=== PATIENT | male | born 1965 | race Hispanic/Latino ===

== ENCOUNTER 2020-11-16 13:17 | Inpatient (IN) | payer BC, MEDICARE ==
[~2020-11-16] VITALS: Ht 167.6 cm; Wt 83.6 kg
[2020-11-16] MEDS ORDERED: PIPERACILLIN/TAZOBACTAM 2.25 GM in SODIUM CHLORIDE 0.9% 50ML 50 ML IV SCH (15:00)
[2020-11-16] MEDS ORDERED: VANCOMYCIN 1GM/NS 250 ML 250 ML IV ONE (15:30)
[2020-11-16 16:15] LABS: BASOPHILS # (AUTO) 0.1 (0.0-0.1); BASOPHILS % 0.3 % (0.0-1.0); EOSINOPHILS # (AUTO) 0.1 (0.0-0.4); EOSINOPHILS % 0.5 % (0.0-6.0); HEMATOCRIT 30.5 % (38.2-49.6); HEMOGLOBIN 10.2 g/dL (14.0-18.0); LYMPHOCYTES # (AUTO) 1.2 (1.0-3.2); LYMPHOCYTES % 4.4 % (18.0-39.1); MEAN CORPUSCULAR HEMOGLOBIN 31.2 pg (28-32); MEAN CORPUSCULAR HGB CONC 33.4 g/dL (31-35); MEAN CORPUSCULAR VOLUME 93.3 fL (81-99); MONOCYTES # (AUTO) 1.4 (0.2-0.8); NEUTROPHILS # (AUTO) 24.6 (2.1-6.9); NEUTROPHILS % 88.5 % (38.7-80.0); PLATELET COUNT 246 x10e3/uL (140-360); RED BLOOD COUNT 3.27 x10e6/uL (4.3-5.7)
[2020-11-16 16:34] LABS: INR 1.37; PROTHROMBIN TIME 17.5 seconds (11.9-14.5)
[2020-11-16 16:35] LABS: PARTIAL THROMBOPLASTIN TIME 64.3 seconds (23.8-35.5)
[2020-11-16 16:36] LABS: ALBUMIN 1.7 g/dL (3.5-5.0); ALBUMIN/GLOBULIN RATIO 0.4 (0.8-2.0); ALKALINE PHOSPHATASE 252 IU/L (40-150); ANION GAP 21.2 mmol/L (8-16); BLOOD UREA NITROGEN 73 mg/dL (7-26); BUN/CREATININE RATIO 7 (6-25); CARBON DIOXIDE 19 mmol/L (22-29); CHLORIDE 98 mmol/L (98-107); CREATINE KINASE 111 IU/L (30-200); CREATININE, SERUM 9.86 mg/dL (0.72-1.25); EST GLOMERULAR FILTRATION RATE 6 ML/MIN (60-); GLUCOSE 314 mg/dL (74-118); MAGNESIUM 2.1 MG/DL (1.3-2.1); POTASSIUM 3.2 mmol/L (3.5-5.1); SODIUM 135 mmol/L (136-145)
[2020-11-16 16:40] LABS: ALANINE AMINOTRANSFERASE < 6 IU/L (0-55)
[2020-11-16 16:41] LABS: CALCIUM 6.9 mg/dL (8.4-10.2)
[2020-11-16] MEDS ORDERED: DEXTROSE 50% SYRINGE 50 ML IV PRN (16:45)
[2020-11-16] MEDS ORDERED: ONDANSETRON HCL INJ 2MG/ML 2ML 2 MG/ML VIAL IV PRN (16:45)
[2020-11-16 18:04] LABS: BAND NEUTROPHILS % (MANUAL) 4 %; LYMPHOCYTES % (MANUAL) 5 % (19-48); MONOCYTES % (MANUAL) 4 % (3.4-9.0); NEUTROPHILS % (MANUAL) 87 % (40-74)
[2020-11-16 18:05] LABS: PLATELET ESTIMATE ADEQUATE; PLATELET MORPHOLOGY COMMENT NORMAL
[2020-11-16 18:06] LABS: POLYCHROMASIA FEW
[2020-11-16] MEDS ORDERED: CEFTRIAXONE SOD 1 GM/50 ML BAG IV SCH (18:15)
[2020-11-16] MEDS ORDERED: TRAMADOL HCL 50 MG TAB PO PRN (18:15)
[2020-11-16] MEDS ORDERED: HYDRALAZINE HCL 20 MG/ML VIAL IV PRN (18:15)
[2020-11-16] MEDS: CEFTRIAXONE SOD 1 GM in SODIUM CHLORIDE 0.9% 50ML 50 ML IV SCH (18:54)
[2020-11-16 20:00] VITALS: BP 164/80
[2020-11-16 20:23] VITALS: BP 164/80
[2020-11-16] MEDS: MELATONIN 5 MG TABLET PO SCH (21:33)
[2020-11-16] MEDS: INSULIN LISPRO 100 UNIT/1 ML 3ML VIAL SQ SCH (21:44)
[2020-11-16 22:04] VITALS: BP 164/80
[2020-11-16] MEDS ORDERED: FUROSEMIDE40 MG PO (22:25)
[2020-11-16] MEDS ORDERED: GABAPENTIN100 MG PO (22:26)
[2020-11-16] MEDS ORDERED: AMLODIPINE BESYL5 MG PO (22:26)
[2020-11-16] MEDS ORDERED: METOPROLOL TAR100 MG PO (22:26)
[2020-11-16] MEDS ORDERED: LEVEMIR FL100 UNIT/1 SC (22:27)
[2020-11-16] MEDS ORDERED: ELIQUIS2.5 MG PO (22:27)
[2020-11-16] MEDS ORDERED: RENVELA0.8 GM PO (22:28)
[2020-11-17] VITALS (8 sets, daily range): BP systolic 118–152; BP diastolic 67–103
[2020-11-17] MEDS: ACETAMINOPHEN 325 MG TAB PO PRN ×2 (00:21→21:01)
[2020-11-17 00:35] LABS: CREATINE KINASE MB 2.6 ng/mL (0-5.0)
[2020-11-17 06:02] LABS: BASOPHILS # (AUTO) 0.1 (0.0-0.1); BASOPHILS % 0.4 % (0.0-1.0); EOSINOPHILS # (AUTO) 0.2 (0.0-0.4); HEMATOCRIT 26.3 % (38.2-49.6); LYMPHOCYTES # (AUTO) 1.7 (1.0-3.2); LYMPHOCYTES % 7.1 % (18.0-39.1); MEAN CORPUSCULAR HEMOGLOBIN 30.7 pg (28-32); MEAN CORPUSCULAR HGB CONC 33.1 g/dL (31-35); MEAN CORPUSCULAR VOLUME 92.9 fL (81-99); MONOCYTES # (AUTO) 1.6 (0.2-0.8); MONOCYTES % 6.8 % (4.4-11.3); NEUTROPHILS # (AUTO) 19.5 (2.1-6.9); NEUTROPHILS % 83.7 % (38.7-80.0); PLATELET COUNT 202 x10e3/uL (140-360); RED BLOOD COUNT 2.83 x10e6/uL (4.3-5.7); RED CELL DISTRIBUTION WIDTH 13.8 % (11.7-14.4)
[2020-11-17 06:10] LABS: HEMOGLOBIN 8.7 g/dL (14.0-18.0)
[2020-11-17 06:29] LABS: ALBUMIN 1.5 g/dL (3.5-5.0); ALBUMIN/GLOBULIN RATIO 0.4 (0.8-2.0); ANION GAP 19.2 mmol/L (8-16); CREATININE, SERUM 10.68 mg/dL (0.72-1.25); POTASSIUM 3.2 mmol/L (3.5-5.1)
[2020-11-17 06:50] LABS: CHOL/HDL RATIO 4.2 (3.9-4.7)
[2020-11-17 06:55] LABS: CALCIUM 6.4 mg/dL (8.4-10.2)
[2020-11-17 07:17] LABS: CREATINE KINASE MB 2.4 ng/mL (0-5.0)
[2020-11-17] MEDS: INSULIN LISPRO 100 UNIT/1 ML 3ML VIAL SQ SCH ×4 (07:30→20:52)
[2020-11-17] MEDS: FAMOTIDINE 20 MG TAB PO SCH ×2 (08:54→16:43)
[2020-11-17] MEDS: SEVELAMER CARBONATE 800 MG TAB PO SCH ×2 (12:00→16:42)
[2020-11-17] MEDS: METOPROLOL TARTRATE 50 MG TAB PO SCH (16:42)
[2020-11-17] MEDS: FUROSEMIDE 40 MG TAB PO SCH (16:43)
[2020-11-17] MEDS: CEFTRIAXONE SOD 1 GM in SODIUM CHLORIDE 0.9% 50ML 50 ML IV SCH (17:53)
[2020-11-17] MEDS ORDERED: SODIUM CHLORIDE 0.9% 250ML 250 ML ONE (17:56)
[2020-11-17] MEDS: MELATONIN 5 MG TABLET PO SCH (21:00)
[2020-11-17] MEDS: GABAPENTIN 100 MG CAP PO SCH (21:00)
[2020-11-18] VITALS (9 sets, daily range): BP systolic 95–140; BP diastolic 13–79
[2020-11-18 06:21] LABS: BASOPHILS # (AUTO) 0.1 (0.0-0.1); BASOPHILS % 0.4 % (0.0-1.0); EOSINOPHILS # (AUTO) 0.2 (0.0-0.4); HEMATOCRIT 27.6 % (38.2-49.6); HEMOGLOBIN 9.1 g/dL (14.0-18.0); LYMPHOCYTES # (AUTO) 1.3 (1.0-3.2); LYMPHOCYTES % 6.4 % (18.0-39.1); MEAN CORPUSCULAR HEMOGLOBIN 30.6 pg (28-32); MEAN CORPUSCULAR VOLUME 92.9 fL (81-99); MONOCYTES # (AUTO) 1.3 (0.2-0.8); MONOCYTES % 6.2 % (4.4-11.3); NEUTROPHILS # (AUTO) 17.7 (2.1-6.9); NEUTROPHILS % 84.8 % (38.7-80.0); PLATELET COUNT 231 x10e3/uL (140-360); RED BLOOD COUNT 2.97 x10e6/uL (4.3-5.7); RED CELL DISTRIBUTION WIDTH 13.7 % (11.7-14.4)
[2020-11-18] MEDS ORDERED: LIDOCAINE HCL 1% LOCAL INJ 20 ML VIAL ONE (06:33)
[2020-11-18] MEDS ORDERED: VANCOMYCIN HCL 500 MG ONE (06:33)
[2020-11-18] MEDS ORDERED: BUPIVACAINE HCL 0.5% INJ 30 ML VIAL INJ ONE (06:34)
[2020-11-18 06:47] LABS: ANION GAP 19.1 mmol/L (8-16); CREATININE, SERUM 10.39 mg/dL (0.72-1.25); POTASSIUM 3.1 mmol/L (3.5-5.1)
[2020-11-18 06:55] LABS: CALCIUM 6.5 mg/dL (8.4-10.2)
[2020-11-18] MEDS: INSULIN LISPRO 100 UNIT/1 ML 3ML VIAL SQ SCH ×4 (08:30→20:52)
[2020-11-18] MEDS: FUROSEMIDE 40 MG TAB PO SCH ×2 (08:54→18:47)
[2020-11-18] MEDS: SEVELAMER CARBONATE 800 MG TAB PO SCH ×3 (08:54→18:47)
[2020-11-18] MEDS: METOPROLOL TARTRATE 50 MG TAB PO SCH ×2 (08:54→17:00)
[2020-11-18] MEDS: AMLODIPINE BESYLATE 5 MG TAB PO SCH (08:54)
[2020-11-18] MEDS: FAMOTIDINE 20 MG TAB PO SCH ×2 (08:54→18:46)
[2020-11-18] MEDS ORDERED: POTASSIUM CHLORIDE 20 MEQ TAB CR PO NR (10:40)
[2020-11-18] MEDS ORDERED: FENTANYL CITRATE/PF 100MCG/2 ML INJ ONE (13:12)
[2020-11-18] MEDS ORDERED: MIDAZOLAM HCL 2 MG/2 ML VIAL ONE (13:12)
[2020-11-18] MEDS ORDERED: VANCOMYCIN 1GM/NS 250 ML 250 ML IV SCH (14:15)
[2020-11-18] MEDS: ASPIRIN 81 MG CHEW TAB PO SCH (18:54)
[2020-11-18] MEDS ORDERED: SEVOFLURANE INHAL SOLN 250 ML PEN BTL ONE (19:13)
[2020-11-18] MEDS ORDERED: POVIDONE IODINE 0.05% 0.05 % ML PO ONE (19:13)
[2020-11-18] MEDS ORDERED: LIDOCAINE HCL 2% LOCAL INJ 5 ML SDV VIAL INJ ONE (19:13)
[2020-11-18] MEDS ORDERED: ONDANSETRON HCL INJ 2MG/ML 2ML 2 MG/ML VIAL ONE (19:13)
[2020-11-18] MEDS ORDERED: LIDOCAINE HCL 2% JELLY 5 ML TUBE ONE (19:13)
[2020-11-18] MEDS ORDERED: PROPOFOL IV EMULSION 10 MG/ML 20 ML VIAL ONE (19:13)
[2020-11-18] MEDS ORDERED: DEXAMETHASONE SOD PHOS INJ 4 MG/ML VIAL ONE (19:13)
[2020-11-18] MEDS: CEFTRIAXONE SOD 1 GM in SODIUM CHLORIDE 0.9% 50ML 50 ML IV SCH (20:15)
[2020-11-18] MEDS: GABAPENTIN 100 MG CAP PO SCH (20:51)
[2020-11-18] MEDS: MELATONIN 5 MG TABLET PO SCH (20:51)
[2020-11-18] MEDS: INSULIN GLARGINE 100 UNITS/ML VIAL SQ SCH (20:53)
[2020-11-19] VITALS (11 sets, daily range): BP systolic 131–150; BP diastolic 70–85
[2020-11-19 07:18] LABS: BASOPHILS # (AUTO) 0.1 (0.0-0.1); BASOPHILS % 0.3 % (0.0-1.0); HEMATOCRIT 29.5 % (38.2-49.6); HEMOGLOBIN 9.7 g/dL (14.0-18.0); LYMPHOCYTES # (AUTO) 0.6 (1.0-3.2); LYMPHOCYTES % 2.2 % (18.0-39.1); MEAN CORPUSCULAR HEMOGLOBIN 30.8 pg (28-32); MEAN CORPUSCULAR HGB CONC 32.9 g/dL (31-35); MEAN CORPUSCULAR VOLUME 93.7 fL (81-99); MONOCYTES # (AUTO) 0.6 (0.2-0.8); MONOCYTES % 2.3 % (4.4-11.3); NEUTROPHILS # (AUTO) 24.5 (2.1-6.9); NEUTROPHILS % 93.9 % (38.7-80.0); PLATELET COUNT 245 x10e3/uL (140-360); RED BLOOD COUNT 3.15 x10e6/uL (4.3-5.7); RED CELL DISTRIBUTION WIDTH 13.7 % (11.7-14.4)
[2020-11-19] MEDS: INSULIN LISPRO 100 UNIT/1 ML 3ML VIAL SQ SCH ×3 (07:25→17:19)
[2020-11-19 07:34] LABS: ALBUMIN 1.5 g/dL (3.5-5.0); ALBUMIN/GLOBULIN RATIO 0.3 (0.8-2.0); ALKALINE PHOSPHATASE 331 IU/L (40-150); ANION GAP 19.7 mmol/L (8-16); BLOOD UREA NITROGEN 66 mg/dL (7-26); BUN/CREATININE RATIO 7 (6-25); CARBON DIOXIDE 17 mmol/L (22-29); CHLORIDE 98 mmol/L (98-107); CREATININE, SERUM 9.76 mg/dL (0.72-1.25); EST GLOMERULAR FILTRATION RATE 6 ML/MIN (60-); POTASSIUM 3.7 mmol/L (3.5-5.1); SODIUM 131 mmol/L (136-145)
[2020-11-19 07:36] LABS: ALANINE AMINOTRANSFERASE < 6 IU/L (0-55)
[2020-11-19 07:37] LABS: CALCIUM 6.7 mg/dL (8.4-10.2)
[2020-11-19 08:04] LABS: GLUCOSE 764 mg/dL (74-118)
[2020-11-19] MEDS: FAMOTIDINE 20 MG TAB PO SCH ×2 (08:45→17:14)
[2020-11-19] MEDS: FUROSEMIDE 40 MG TAB PO SCH ×2 (08:45→17:14)
[2020-11-19] MEDS: SEVELAMER CARBONATE 800 MG TAB PO SCH ×3 (08:45→17:15)
[2020-11-19] MEDS: ASPIRIN 81 MG CHEW TAB PO SCH (08:45)
[2020-11-19] MEDS: AMLODIPINE BESYLATE 5 MG TAB PO SCH (08:46)
[2020-11-19] MEDS: METOPROLOL TARTRATE 50 MG TAB PO SCH ×2 (08:46→17:15)
[2020-11-19] MEDS ORDERED: EPOETIN ALFA-EPBX 10,000 UNIT/ML VIAL SC ONE (11:30)
[2020-11-19 11:58] LABS: PHOSPHORUS 7.2 MG/DL (2.3-4.7)
[2020-11-19 12:06] LABS: CALCIUM IONIZED 0.9 mmol/L (1.09-1.30)
[2020-11-19] MEDS ORDERED: DEXTROSE 50% SYRINGE 50 ML IV PRN (15:30)
[2020-11-19 16:40] LABS: FREE T4 (FREE THYROXINE) 1.23 ng/dL (0.8-1.8); THYROID STIMULATING HORMONE 0.256 uIU/mL (0.350-4.940)
[2020-11-19] MEDS: SODIUM BICARBONATE 650 MG TAB PO SCH (17:15)
[2020-11-19] MEDS: CEFTRIAXONE SOD 1 GM in SODIUM CHLORIDE 0.9% 50ML 50 ML IV SCH (17:16)
[2020-11-19] MEDS: INSULIN REGULAR, HUMAN 3ML VL 100 UNIT in SODIUM CHLORIDE 0.9% 100 ML IV SCH ×4 (19:21→23:15)
[2020-11-19] MEDS: GABAPENTIN 100 MG CAP PO SCH (20:54)
[2020-11-19] MEDS: INSULIN GLARGINE 100 UNITS/ML VIAL SQ SCH (20:54)
[2020-11-19] MEDS: MELATONIN 5 MG TABLET PO SCH (20:54)
[2020-11-20] VITALS (14 sets, daily range): BP systolic 127–152; BP diastolic 59–84
[2020-11-20] MEDS: INSULIN REGULAR, HUMAN 3ML VL 100 UNIT in SODIUM CHLORIDE 0.9% 100 ML IV SCH ×2 (01:11)
[2020-11-20 05:50] LABS: BASOPHILS # (AUTO) 0.1 (0.0-0.1); BASOPHILS % 0.2 % (0.0-1.0); EOSINOPHILS # (AUTO) 0.2 (0.0-0.4); EOSINOPHILS % 0.9 % (0.0-6.0); HEMATOCRIT 28.9 % (38.2-49.6); HEMOGLOBIN 9.6 g/dL (14.0-18.0); LYMPHOCYTES # (AUTO) 1.2 (1.0-3.2); LYMPHOCYTES % 5.5 % (18.0-39.1); MEAN CORPUSCULAR HEMOGLOBIN 30.5 pg (28-32); MEAN CORPUSCULAR HGB CONC 33.2 g/dL (31-35); MEAN CORPUSCULAR VOLUME 91.7 fL (81-99); MONOCYTES # (AUTO) 0.8 (0.2-0.8); MONOCYTES % 3.9 % (4.4-11.3); NEUTROPHILS # (AUTO) 18.6 (2.1-6.9); NEUTROPHILS % 87.5 % (38.7-80.0); PLATELET COUNT 264 x10e3/uL (140-360); RED BLOOD COUNT 3.15 x10e6/uL (4.3-5.7); RED CELL DISTRIBUTION WIDTH 13.3 % (11.7-14.4)
[2020-11-20] MEDS: FAMOTIDINE 20 MG TAB PO SCH ×2 (09:28→17:37)
[2020-11-20] MEDS: ASPIRIN 81 MG CHEW TAB PO SCH (09:29)
[2020-11-20] MEDS: FUROSEMIDE 40 MG TAB PO SCH ×2 (09:29→17:37)
[2020-11-20] MEDS: METOPROLOL TARTRATE 50 MG TAB PO SCH ×2 (09:29→17:39)
[2020-11-20] MEDS: SODIUM BICARBONATE 650 MG TAB PO SCH ×2 (09:29→17:38)
[2020-11-20] MEDS: AMLODIPINE BESYLATE 5 MG TAB PO SCH (09:29)
[2020-11-20] MEDS: SEVELAMER CARBONATE 800 MG TAB PO SCH ×3 (09:29→17:37)
[2020-11-20 13:22] LABS: CREATININE, SERUM 9.75 mg/dL (0.72-1.25)
[2020-11-20 13:32] LABS: CALCIUM 6.9 mg/dL (8.4-10.2)
[2020-11-20] MEDS: INSULIN LISPRO 100 UNIT/1 ML 3ML VIAL SQ SCH ×2 (17:00→20:41)
[2020-11-20] MEDS ORDERED: DEXTROSE 50% SYRINGE 50 ML IV PRN (18:00)
[2020-11-20] MEDS: CEFTRIAXONE SOD 1 GM in SODIUM CHLORIDE 0.9% 50ML 50 ML IV SCH (19:44)
[2020-11-20] MEDS: GABAPENTIN 100 MG CAP PO SCH (20:41)
[2020-11-20] MEDS: MELATONIN 5 MG TABLET PO SCH (20:41)
[2020-11-20] MEDS: INSULIN GLARGINE 100 UNITS/ML VIAL SQ SCH (20:44)
[2020-11-21] VITALS (14 sets, daily range): BP systolic 115–150; BP diastolic 59–78
[2020-11-21 05:07] LABS: BASOPHILS # (AUTO) 0.1 (0.0-0.1); BASOPHILS % 0.6 % (0.0-1.0); EOSINOPHILS # (AUTO) 0.4 (0.0-0.4); EOSINOPHILS % 2.1 % (0.0-6.0); HEMATOCRIT 30.2 % (38.2-49.6); HEMOGLOBIN 10.1 g/dL (14.0-18.0); LYMPHOCYTES # (AUTO) 1.3 (1.0-3.2); LYMPHOCYTES % 7.6 % (18.0-39.1); MEAN CORPUSCULAR HEMOGLOBIN 30.9 pg (28-32); MEAN CORPUSCULAR HGB CONC 33.4 g/dL (31-35); MEAN CORPUSCULAR VOLUME 92.4 fL (81-99); MONOCYTES # (AUTO) 0.9 (0.2-0.8); MONOCYTES % 5.4 % (4.4-11.3); NEUTROPHILS # (AUTO) 13.8 (2.1-6.9); NEUTROPHILS % 81.9 % (38.7-80.0); PLATELET COUNT 269 x10e3/uL (140-360); RED BLOOD COUNT 3.27 x10e6/uL (4.3-5.7); RED CELL DISTRIBUTION WIDTH 13.6 % (11.7-14.4)
[2020-11-21 05:25] LABS: INR 1.14; PROTHROMBIN TIME 15.3 seconds (11.9-14.5)
[2020-11-21 05:26] LABS: ALBUMIN 1.6 g/dL (3.5-5.0); ALBUMIN/GLOBULIN RATIO 0.4 (0.8-2.0); ANION GAP 19.1 mmol/L (8-16); CREATININE, SERUM 9.45 mg/dL (0.72-1.25); PARTIAL THROMBOPLASTIN TIME 43.4 seconds (23.8-35.5); POTASSIUM 3.1 mmol/L (3.5-5.1)
[2020-11-21 05:37] LABS: CALCIUM 6.7 mg/dL (8.4-10.2)
[2020-11-21] MEDS: FAMOTIDINE 20 MG TAB PO SCH ×2 (07:30→16:04)
[2020-11-21] MEDS ORDERED: ONDANSETRON HCL 4 MG ORAL DISINTEGRATING TAB PO PRN (07:45)
[2020-11-21] MEDS: INSULIN LISPRO 100 UNIT/1 ML 3ML VIAL SQ SCH ×7 (07:55→21:00)
[2020-11-21] MEDS: SEVELAMER CARBONATE 800 MG TAB PO SCH ×3 (07:59→16:05)
[2020-11-21] MEDS: SODIUM BICARBONATE 650 MG TAB PO SCH ×2 (08:00→16:05)
[2020-11-21] MEDS: METOPROLOL TARTRATE 50 MG TAB PO SCH ×2 (08:00→16:05)
[2020-11-21] MEDS: ASPIRIN 81 MG CHEW TAB PO SCH (08:00)
[2020-11-21] MEDS: AMLODIPINE BESYLATE 5 MG TAB PO SCH (08:00)
[2020-11-21] MEDS: FUROSEMIDE 40 MG TAB PO SCH ×2 (08:00→16:04)
[2020-11-21] MEDS ORDERED: POTASSIUM CHLORIDE 20 MEQ TAB CR PO ONE ×3 (10:00→16:30)
[2020-11-21] MEDS ORDERED: DEXTROSE 50% SYRINGE 50 ML IV ONE (10:35)
[2020-11-21] MEDS ORDERED: MIDAZOLAM HCL 2 MG/2 ML VIAL ONE ×2 (10:36→18:33)
[2020-11-21] MEDS ORDERED: HEPARIN SOD (PORCINE) 1000 UNIT/ML 30ML ONE ×2 (10:36→18:25)
[2020-11-21] MEDS ORDERED: IOPAMIDOL 300MG/ML 100 ML INFUS..BTL IV ONE (10:37)
[2020-11-21] MEDS ORDERED: NITROGLYCERIN/D5W 200 MCG/ML 0 ML ONE (10:37)
[2020-11-21] MEDS ORDERED: FENTANYL CITRATE/PF 100MCG/2 ML INJ ONE ×2 (10:37→18:33)
[2020-11-21] MEDS ORDERED: SODIUM CHLORIDE 0.9% 1000ML 0 ML ONE (10:37)
[2020-11-21] MEDS ORDERED: LIDOCAINE HCL 2% LOCAL 20 ML VIAL ONE ×2 (10:37→18:25)
[2020-11-21] MEDS ORDERED: HEPARIN SOD/SOD CHLORIDE 2,000 ML ONE ×2 (10:37→18:26)
[2020-11-21] MEDS ORDERED: CEFAZOLIN SOD 1 GM/NS 50ML 50 ML IV SCH (14:15)
[2020-11-21] MEDS ORDERED: NITROGLYCERIN/D5W 200 MCG/ML 250 ML ONE (18:25)
[2020-11-21] MEDS ORDERED: SODIUM CHLORIDE 0.9% 1000ML 1,000 ML ONE (18:25)
[2020-11-21] MEDS ORDERED: IOPAMIDOL 300MG/ML 50ML INFUS..BTL IV ONE (18:25)
[2020-11-21] MEDS ORDERED: ASPIRIN 325 MG TAB ONE (19:26)
[2020-11-21] MEDS ORDERED: CLOPIDOGREL BISULFATE 75 MG TAB ONE (19:26)
[2020-11-21] MEDS ORDERED: ONDANSETRON HCL INJ 2MG/ML 2ML 2 MG/ML VIAL IV PRN (19:45)
[2020-11-21] MEDS ORDERED: HYDROCODONE/APAP 5MG-325MG TAB PO PRN (19:45)
[2020-11-21] MEDS ORDERED: INSULIN GLARGINE 100 UNITS/ML VIAL SQ SCH (21:00)
[2020-11-21 22:20] LABS: ALBUMIN 1.6 g/dL (3.5-5.0); ALBUMIN/GLOBULIN RATIO 0.4 (0.8-2.0); ANION GAP 19.6 mmol/L (8-16); CREATININE, SERUM 10.1 mg/dL (0.72-1.25); PHOSPHORUS 7.6 MG/DL (2.3-4.7); POTASSIUM 3.6 mmol/L (3.5-5.1)
[2020-11-21 22:21] LABS: CALCIUM 6.6 mg/dL (8.4-10.2)
[2020-11-21] MEDS: MELATONIN 5 MG TABLET PO SCH (22:24)
[2020-11-21] MEDS: GABAPENTIN 100 MG CAP PO SCH (22:24)
[2020-11-22] VITALS: BP 130/71
[2020-11-22 04:00] VITALS: BP 122/69
[2020-11-22 04:55] LABS: BASOPHILS # (AUTO) 0.1 (0.0-0.1); BASOPHILS % 0.5 % (0.0-1.0); EOSINOPHILS # (AUTO) 0.2 (0.0-0.4); EOSINOPHILS % 1.8 % (0.0-6.0); HEMOGLOBIN 9.7 g/dL (14.0-18.0); LYMPHOCYTES # (AUTO) 1.3 (1.0-3.2); LYMPHOCYTES % 9.9 % (18.0-39.1); MEAN CORPUSCULAR HEMOGLOBIN 30.3 pg (28-32); MEAN CORPUSCULAR HGB CONC 32.3 g/dL (31-35); MEAN CORPUSCULAR VOLUME 93.8 fL (81-99); MONOCYTES # (AUTO) 0.9 (0.2-0.8); MONOCYTES % 6.7 % (4.4-11.3); NEUTROPHILS # (AUTO) 10.3 (2.1-6.9); PLATELET COUNT 260 x10e3/uL (140-360); RED CELL DISTRIBUTION WIDTH 13.7 % (11.7-14.4)
[2020-11-22 05:27] LABS: ALBUMIN 1.5 g/dL (3.5-5.0); ALBUMIN/GLOBULIN RATIO 0.3 (0.8-2.0); ANION GAP 20.3 mmol/L (8-16); CREATININE, SERUM 9.73 mg/dL (0.72-1.25); POTASSIUM 3.3 mmol/L (3.5-5.1)
[2020-11-22 05:35] LABS: CALCIUM 6.6 mg/dL (8.4-10.2)
[2020-11-22] MEDS: INSULIN LISPRO 100 UNIT/1 ML 3ML VIAL SQ SCH ×6 (07:30→16:41)
[2020-11-22 07:32] VITALS: BP 127/82
[2020-11-22] MEDS: METOPROLOL TARTRATE 50 MG TAB PO SCH ×2 (08:34→17:04)
[2020-11-22] MEDS: FAMOTIDINE 20 MG TAB PO SCH ×2 (08:34→16:06)
[2020-11-22] MEDS: FUROSEMIDE 40 MG TAB PO SCH ×2 (08:34→17:04)
[2020-11-22] MEDS: SEVELAMER CARBONATE 800 MG TAB PO SCH ×3 (08:34→17:04)
[2020-11-22] MEDS: ASPIRIN 81 MG CHEW TAB PO SCH (08:34)
[2020-11-22] MEDS: SODIUM BICARBONATE 650 MG TAB PO SCH ×2 (08:34→17:04)
[2020-11-22] MEDS: AMLODIPINE BESYLATE 5 MG TAB PO SCH (08:34)
[2020-11-22 08:38] VITALS: BP 127/82
[2020-11-22] MEDS ORDERED: CLOPIDOGREL BISULFATE 75 MG TAB PO SCH (09:00)
[2020-11-22 12:03] VITALS: BP 117/65
[2020-11-22 16:00] VITALS: BP 125/76
[2020-11-22] MEDS ORDERED: CEFAZOLIN SOD 1 GM/NS 50ML 50 ML IV SCH (18:00)
[2020-11-22] MEDS ORDERED: SODIUM CHLORIDE 0.9% IV SCH ×2 (18:00)
[2020-11-22] MEDS ORDERED: CEFAZOLIN SOD IV SCH ×2 (18:00)
[2020-11-22] MEDS ORDERED: INSULIN GLARGINE 100 UNITS/ML VIAL SQ SCH (21:00)
== END 2020-11-22 18:15 | DRG 252 ==
LOC: ER 14:59 → ERHOLD 16:47 → MED/SURG3 20:00 → ICU 11-19 18:35 → IMCU 11-20 10:10
PROVIDERS: ADMIT Internal Medicine; ATTEND Internal Medicine
PROC: 3E1M39Z Irrigation of Peritoneal Cavity using Dialysate, Percutaneous Approach (ICD-10-PCS; 2020-11-17)
PROC: 0X6Q0Z0 Detachment at Right Middle Finger, Complete, Open Approach (ICD-10-PCS; 2020-11-18)
PROC: 0JBR0ZZ Excision of Left Foot Subcutaneous Tissue and Fascia, Open Approach (ICD-10-PCS; principal; 2020-11-18 06:30)
PROC: 3E1M39Z Irrigation of Peritoneal Cavity using Dialysate, Percutaneous Approach (ICD-10-PCS; 2020-11-19)
PROC: 3E1M39Z Irrigation of Peritoneal Cavity using Dialysate, Percutaneous Approach (ICD-10-PCS; 2020-11-20)
PROC: 047S3Z1 Dilation of Left Posterior Tibial Artery using Drug-Coated Balloon, Percutaneous Approach (ICD-10-PCS; 2020-11-21)
PROC: 047Q3Z1 Dilation of Left Anterior Tibial Artery using Drug-Coated Balloon, Percutaneous Approach (ICD-10-PCS; 2020-11-21)
PROC: B4101ZZ Fluoroscopy of Abdominal Aorta using Low Osmolar Contrast (ICD-10-PCS; 2020-11-21)
PROC: B41G1ZZ Fluoroscopy of Left Lower Extremity Arteries using Low Osmolar Contrast (ICD-10-PCS; 2020-11-21)
DX: E11.51 Type 2 diabetes mellitus with diabetic peripheral angiopathy without gangrene (principal); N18.6 End stage renal disease; I12.0 Hypertensive chronic kidney disease with stage 5 chronic kidney disease or end stage renal disease; M86.141 Other acute osteomyelitis, right hand; L03.116 Cellulitis of left lower limb; L02.611 Cutaneous abscess of right foot; L03.115 Cellulitis of right lower limb; L97.919 Non-pressure chronic ulcer of unspecified part of right lower leg with unspecified severity; L97.429 Non-pressure chronic ulcer of left heel and midfoot with unspecified severity; E11.69 Type 2 diabetes mellitus with other specified complication; E11.10 Type 2 diabetes mellitus with ketoacidosis without coma; E11.22 Type 2 diabetes mellitus with diabetic chronic kidney disease; E11.42 Type 2 diabetes mellitus with diabetic polyneuropathy; Z99.2 Dependence on renal dialysis; Z79.4 Long term (current) use of insulin; E78.5 Hyperlipidemia, unspecified; R09.89 Other specified symptoms and signs involving the circulatory and respiratory systems; R01.1 Cardiac murmur, unspecified; R00.9 Unspecified abnormalities of heart beat; E83.51 Hypocalcemia; I70.239 Atherosclerosis of native arteries of right leg with ulceration of unspecified site; D64.9 Anemia, unspecified; B95.61 Methicillin susceptible Staphylococcus aureus infection as the cause of diseases classified elsewhere; E87.6 Hypokalemia; I70.244 Atherosclerosis of native arteries of left leg with ulceration of heel and midfoot
CPT/HCPCS: 36247; 36415; 37228; 37232; 71045; 75625; 75716; 80048; 80053; 80061; 82550; 82553; 82948; 83036; 83605; 83735; 84100; 84439; 84443; 84484; 85025; 85610; 85730; 87040; 87071; 87075; 87186; 87205; 88304; 88305; 88311; 93005; 93306; 93880; 93925; 96372; 97605; 99152; 99153; 99251; 99284; C1760; C1769; C1887; J0690; J0696; J1100; J1644; J1815; J1817; J2001; J2250; J2405; J2543; J3010; J3370; J7030; J7050; J7799; Q9967; U0002

== ENCOUNTER → 2021-02-01 | Day surgery (SDC) | payer MEDICARE ==
[2021-02-01] VITALS (17 sets, daily range): BP systolic 121–155; BP diastolic 66–88
[~2021-02-01] MED LIST: AMLODIPINE BESYL5 MG PO; ASPIRIN EC81 MG PO; ELIQUIS2.5 MG PO; FENTANYL CITRATE/PF 100MCG/2 ML INJ ONE; FUROSEMIDE40 MG PO; GABAPENTIN100 MG PO; HEPARIN SOD/SOD CHLORIDE 2,000 ML ONE; IOPAMIDOL 300MG/ML 100 ML INFUS..BTL IV ONE; LEVEMIR FL100 UNIT/1 SC; LIDOCAINE HCL 2% LOCAL 20 ML VIAL ONE; METOPROLOL TAR100 MG PO; MIDAZOLAM HCL 2 MG/2 ML VIAL ONE; REGLAN10 MG PO; REGLAN5 MG PO; RENAGEL800 MG PO; RENVELA0.8 GM PO; SODIUM CHLORIDE 0.9% 1000ML 1,000 ML ONE; VERAPAMIL HCL 2.5 MG/ML 2 ML VIAL ONE
[2021-02-01 10:13] LABS: INR 1.06; PROTHROMBIN TIME 14.4 seconds (11.9-14.5)
[2021-02-01 10:16] LABS: PARTIAL THROMBOPLASTIN TIME 41.6 seconds (23.8-35.5)
== END | disposition home or self-care (01) ==
LOC: CATH LAB 08:36
PROVIDERS: ATTEND Internal Medicine Cardiovascular Disease
DX: I70.222 Atherosclerosis of native arteries of extremities with rest pain, left leg (principal); Z01.812 Encounter for preprocedural laboratory examination; I70.213 Atherosclerosis of native arteries of extremities with intermittent claudication, bilateral legs; I10 Essential (primary) hypertension; E78.5 Hyperlipidemia, unspecified; I48.91 Unspecified atrial fibrillation; E11.9 Type 2 diabetes mellitus without complications; Z79.82 Long term (current) use of aspirin; Z79.4 Long term (current) use of insulin
CPT/HCPCS: 36415; 37229; 75625; 76937; 82948; 85610; 85730; C1724; C1760; C1769 ×3; C1887 ×2; C1894; J2001; J2250; J3010; J7030; Q9967; 36247; 75716; 99152; 99153

== ENCOUNTER 2021-02-14 23:41 | Emergency (ER) | payer MEDICARE ==
[~2021-02-14] VITALS: Ht 167.6 cm; Wt 83.5 kg
[~2021-02-14 23:41] MED LIST changes: -FENTANYL CITRATE/PF 100MCG/2 ML INJ ONE; -HEPARIN SOD/SOD CHLORIDE 2,000 ML ONE; -IOPAMIDOL 300MG/ML 100 ML INFUS..BTL IV ONE; -LIDOCAINE HCL 2% LOCAL 20 ML VIAL ONE; -MIDAZOLAM HCL 2 MG/2 ML VIAL ONE; -SODIUM CHLORIDE 0.9% 1000ML 1,000 ML ONE; -VERAPAMIL HCL 2.5 MG/ML 2 ML VIAL ONE
[2021-02-15 00:15] LABS: BASOPHILS % 0.4 % (0.0-1.0); EOSINOPHILS # (AUTO) 0.1 (0.0-0.4); EOSINOPHILS % 1.8 % (0.0-6.0); HEMATOCRIT 23.4 % (38.2-49.6); HEMOGLOBIN 7.6 g/dL (14.0-18.0); LYMPHOCYTES # (AUTO) 1.5 (1.0-3.2); LYMPHOCYTES % 18.6 % (18.0-39.1); MEAN CORPUSCULAR HEMOGLOBIN 30.6 pg (28-32); MEAN CORPUSCULAR HGB CONC 32.5 g/dL (31-35); MEAN CORPUSCULAR VOLUME 94.4 fL (81-99); MONOCYTES # (AUTO) 0.6 (0.2-0.8); MONOCYTES % 7.6 % (4.4-11.3); NEUTROPHILS # (AUTO) 5.6 (2.1-6.9); PLATELET COUNT 233 x10e3/uL (140-360); RED BLOOD COUNT 2.48 x10e6/uL (4.3-5.7)
[2021-02-15 00:18] LABS: INR 1.04; PROTHROMBIN TIME 14.2 seconds (11.9-14.5)
[2021-02-15 00:19] LABS: PARTIAL THROMBOPLASTIN TIME 34.3 seconds (23.8-35.5)
[2021-02-15 00:27] LABS: ALBUMIN 1.7 g/dL (3.5-5.0); ALBUMIN/GLOBULIN RATIO 0.4 (0.8-2.0); ANION GAP 17.2 mmol/L (8-16); CALCIUM 7.1 mg/dL (8.4-10.2); CREATININE, SERUM 10.33 mg/dL (0.72-1.25); POTASSIUM 4.2 mmol/L (3.5-5.1)
== END 2021-02-15 00:59 | disposition home or self-care (01) ==
LOC: ER 23:53
DX: S91.302A Unspecified open wound, left foot, initial encounter (principal); E11.22 Type 2 diabetes mellitus with diabetic chronic kidney disease; I12.0 Hypertensive chronic kidney disease with stage 5 chronic kidney disease or end stage renal disease; N18.6 End stage renal disease; Z99.2 Dependence on renal dialysis; Z79.4 Long term (current) use of insulin; Z79.02 Long term (current) use of antithrombotics/antiplatelets; Z79.82 Long term (current) use of aspirin
CPT/HCPCS: 36415; 80053; 85025; 85610; 85730; 99283

== ENCOUNTER 2021-05-22 11:01 | Inpatient (IN) | payer MEDICARE ==
[~2021-05-22] VITALS: Ht 167.6 cm; Wt 83.5 kg
[2021-05-22 11:52] LABS: BASOPHILS % 0.4 % (0.0-1.0); EOSINOPHILS # (AUTO) 0.2 (0.0-0.4); EOSINOPHILS % 2.1 % (0.0-6.0); MEAN CORPUSCULAR HEMOGLOBIN 28.8 pg (28-32); MEAN CORPUSCULAR HGB CONC 30.6 g/dL (31-35); MEAN CORPUSCULAR VOLUME 94.1 fL (81-99); MONOCYTES # (AUTO) 0.7 (0.2-0.8); MONOCYTES % 6.6 % (4.4-11.3); NEUTROPHILS % 79.4 % (38.7-80.0); PLATELET COUNT 261 x10e3/uL (140-360); RED BLOOD COUNT 2.22 x10e6/uL (4.3-5.7); RED CELL DISTRIBUTION WIDTH 14.7 % (11.7-14.4)
[2021-05-22 12:00] LABS: HEMOGLOBIN 6.4 g/dL (14.0-18.0)
[2021-05-22 12:01] LABS: HEMATOCRIT 20.9 % (38.2-49.6)
[2021-05-22 12:11] LABS: INR 1.31; PROTHROMBIN TIME 16.8 seconds (11.9-14.5)
[2021-05-22 12:12] LABS: PARTIAL THROMBOPLASTIN TIME 52.2 seconds (23.8-35.5)
[2021-05-22 12:22] LABS: ALBUMIN 2.1 g/dL (3.5-5.0); ALBUMIN/GLOBULIN RATIO 0.5 (0.8-2.0); ALKALINE PHOSPHATASE 320 IU/L (40-150); ANION GAP 19.5 mmol/L (8-16); BLOOD UREA NITROGEN 75 mg/dL (7-26); BUN/CREATININE RATIO 9 (6-25); CALCIUM 7.1 mg/dL (8.4-10.2); CARBON DIOXIDE 16 mmol/L (22-29); CHLORIDE 99 mmol/L (98-107); CREATINE KINASE 274 IU/L (30-200); CREATININE, SERUM 8.63 mg/dL (0.72-1.25); EST GLOMERULAR FILTRATION RATE 6 ML/MIN (60-); MAGNESIUM 2.3 MG/DL (1.3-2.1); POTASSIUM 4.5 mmol/L (3.5-5.1); SODIUM 130 mmol/L (136-145)
[2021-05-22 12:27] LABS: ALANINE AMINOTRANSFERASE < 6 IU/L (0-55)
[2021-05-22 12:28] LABS: GLUCOSE 639 mg/dL (74-118)
[2021-05-22] MEDS ORDERED: INSULIN REGULAR, HUMAN 100 UNIT/1 ML IV ONE (13:15)
[2021-05-22] MEDS ORDERED: SODIUM CHLORIDE 0.9% 250ML 250 ML IV ONE (14:15)
[2021-05-22] MEDS ORDERED: METOPROLOL TARTRATE 25 MG TAB PO ONE (14:30)
[2021-05-22] MEDS ORDERED: INSULIN GLARGINE 100 UNITS/ML VIAL SQ SCH (14:30)
[2021-05-22] MEDS ORDERED: ONDANSETRON HCL INJ 2MG/ML 2ML 2 MG/ML VIAL IV PRN (14:30)
[2021-05-22] MEDS ORDERED: DEXTROSE 50% SYRINGE 50 ML IV PRN (14:30)
[2021-05-22] MEDS: ENALAPRIL MALEATE 10 MG TAB PO SCH ×2 (15:15→22:21)
[2021-05-22 15:18] LABS: % IRON SATURATION 29 % (15-50); IRON 46 ug/dL (65-175); TOTAL IRON BINDING CAPACITY 160 ug/dL (261-478); TRANSFERRIN 114 mg/dL (174-364)
[2021-05-22 16:39] VITALS: BP 148/86
[2021-05-22 16:40] VITALS: BP 148/86
[2021-05-22 17:00] VITALS: BP 148/86
[2021-05-22] MEDS ORDERED: METOPROLOL TARTRATE INJ 1 MG/ML VIAL IV PRN (17:00)
[2021-05-22] MEDS ORDERED: CARVEDILOL 12.5 MG TAB PO SCH (17:00)
[2021-05-22] MEDS: INSULIN LISPRO 100 UNIT/1 ML 3ML VIAL SQ SCH ×2 (17:43→23:28)
[2021-05-22] MEDS ORDERED: FLUOXETINE HCL10 MG PO (18:09)
[2021-05-22] MEDS ORDERED: ASPART FLEX SQ (18:09)
[2021-05-22] MEDS ORDERED: MEGESTROL ACETA40 MG PO (18:09)
[2021-05-22] MEDS ORDERED: POTASSIUM CHLO20 ME1 PO (18:09)
[2021-05-22] MEDS ORDERED: LANTUS 3ML100 UNITS/ SQ (18:09)
[2021-05-22] MEDS ORDERED: PLAVIX75 MG PO (18:09)
[2021-05-22] MEDS ORDERED: ESMOLOL HCL 100MG/10ML 10 MG/ML VIAL ONE (19:27)
[2021-05-22 20:00] VITALS: BP 124/79
[2021-05-22 20:09] LABS: CREATINE KINASE MB 21.4 ng/mL (0-5.0)
[2021-05-22] MEDS ORDERED: INSULIN GLARGINE 100 UNITS/ML VIAL SQ ONE (21:00)
[2021-05-23] VITALS (10 sets, daily range): BP systolic 106–160; BP diastolic 62–96
[2021-05-23 07:03] LABS: BASOPHILS % 0.3 % (0.0-1.0); EOSINOPHILS # (AUTO) 0.3 (0.0-0.4); EOSINOPHILS % 2.8 % (0.0-6.0); HEMATOCRIT 25.4 % (38.2-49.6); HEMOGLOBIN 8.1 g/dL (14.0-18.0); LYMPHOCYTES # (AUTO) 1.4 (1.0-3.2); LYMPHOCYTES % 15.4 % (18.0-39.1); MEAN CORPUSCULAR HEMOGLOBIN 28.8 pg (28-32); MEAN CORPUSCULAR HGB CONC 31.9 g/dL (31-35); MEAN CORPUSCULAR VOLUME 90.4 fL (81-99); MONOCYTES # (AUTO) 0.8 (0.2-0.8); MONOCYTES % 8.5 % (4.4-11.3); NEUTROPHILS # (AUTO) 6.7 (2.1-6.9); NEUTROPHILS % 71.6 % (38.7-80.0); PLATELET COUNT 231 x10e3/uL (140-360); RED BLOOD COUNT 2.81 x10e6/uL (4.3-5.7); RED CELL DISTRIBUTION WIDTH 14.9 % (11.7-14.4)
[2021-05-23 07:25] LABS: ALBUMIN 1.8 g/dL (3.5-5.0); ALBUMIN/GLOBULIN RATIO 0.5 (0.8-2.0); ALKALINE PHOSPHATASE 211 IU/L (40-150); ANION GAP 18.8 mmol/L (8-16); BLOOD UREA NITROGEN 71 mg/dL (7-26); BUN/CREATININE RATIO 9 (6-25); CALCIUM 7.1 mg/dL (8.4-10.2); CARBON DIOXIDE 19 mmol/L (22-29); CHLORIDE 103 mmol/L (98-107); CREATININE, SERUM 8.15 mg/dL (0.72-1.25); EST GLOMERULAR FILTRATION RATE 7 ML/MIN (60-); GLUCOSE 206 mg/dL (74-118); POTASSIUM 3.8 mmol/L (3.5-5.1); SODIUM 137 mmol/L (136-145)
[2021-05-23 07:26] LABS: % IRON SATURATION 23 % (15-50); IRON 31 ug/dL (65-175); TOTAL IRON BINDING CAPACITY 137 ug/dL (261-478); TRANSFERRIN 98 mg/dL (174-364)
[2021-05-23 07:32] LABS: CREATINE KINASE MB 45.1 ng/mL (0-5.0)
[2021-05-23 07:36] LABS: ALANINE AMINOTRANSFERASE < 6 IU/L (0-55)
[2021-05-23 07:43] LABS: CHOL/HDL RATIO 2.9 (3.9-4.7); MAGNESIUM 2.1 MG/DL (1.3-2.1); PHOSPHORUS 6.8 MG/DL (2.3-4.7)
[2021-05-23] MEDS: INSULIN LISPRO 100 UNIT/1 ML 3ML VIAL SQ SCH ×4 (08:02→21:00)
[2021-05-23 08:05] LABS: FERRITIN 897.58 ng/mL (21.81-274.66); THYROID STIMULATING HORMONE 0.884 uIU/mL (0.350-4.940)
[2021-05-23] MEDS: ENALAPRIL MALEATE 10 MG TAB PO SCH ×2 (08:45→17:02)
[2021-05-23] MEDS: CARVEDILOL 12.5 MG TAB PO SCH ×2 (08:45→17:03)
[2021-05-23] MEDS ORDERED: LIDOCAINE HCL 2% LOCAL INJ 5 ML SDV VIAL INJ ONE (13:33)
[2021-05-23] MEDS ORDERED: PROPOFOL IV EMULSION 10 MG/ML 20 ML VIAL ONE (13:33)
[2021-05-23] MEDS ORDERED: POVIDONE IODINE 0.05% 0.05 % ML PO ONE (13:33)
[2021-05-23] MEDS: IRON SUCROSE 100 MG in SODIUM CHLORIDE 0.9% 100 ML 100 ML IV SCH (15:26)
[2021-05-23] MEDS ORDERED: HEPARIN SOD (PORCINE) 1000 UNIT/ML SDV ONE (16:13)
[2021-05-23] MEDS: FUROSEMIDE 40 MG TAB PO SCH (17:02)
[2021-05-23 18:27] LABS: CREATINE KINASE MB 43.6 ng/mL (0-5.0)
[2021-05-23] MEDS ORDERED: PEG (High)/E-LYTE SOLN 4,000 ML BTL PO ONE (20:15)
[2021-05-23] MEDS ORDERED: INSULIN GLARGINE 100 UNITS/ML VIAL SQ SCH (21:00)
[2021-05-23] MEDS ORDERED: BISACODYL 5 MG TAB EC PO ONE ×2 (21:00→22:00)
[2021-05-23] MEDS: GABAPENTIN 100 MG CAP PO SCH (22:14)
[2021-05-24] VITALS (8 sets, daily range): BP systolic 132–165; BP diastolic 69–100
[2021-05-24] MEDS: INSULIN GLARGINE 100 UNITS/ML VIAL SQ SCH (05:18)
[2021-05-24 06:00] LABS: BASOPHILS % 0.4 % (0.0-1.0); EOSINOPHILS # (AUTO) 0.2 (0.0-0.4); EOSINOPHILS % 2.9 % (0.0-6.0); HEMATOCRIT 26.6 % (38.2-49.6); HEMOGLOBIN 8.8 g/dL (14.0-18.0); LYMPHOCYTES # (AUTO) 1.2 (1.0-3.2); LYMPHOCYTES % 14.9 % (18.0-39.1); MEAN CORPUSCULAR HGB CONC 33.1 g/dL (31-35); MEAN CORPUSCULAR VOLUME 87.8 fL (81-99); MONOCYTES # (AUTO) 0.7 (0.2-0.8); MONOCYTES % 9.4 % (4.4-11.3); NEUTROPHILS # (AUTO) 5.6 (2.1-6.9); NEUTROPHILS % 71.3 % (38.7-80.0); PLATELET COUNT 241 x10e3/uL (140-360); RED BLOOD COUNT 3.03 x10e6/uL (4.3-5.7); RED CELL DISTRIBUTION WIDTH 15.3 % (11.7-14.4)
[2021-05-24 06:40] LABS: ALBUMIN 1.8 g/dL (3.5-5.0); ALBUMIN/GLOBULIN RATIO 0.5 (0.8-2.0); ALKALINE PHOSPHATASE 195 IU/L (40-150); BLOOD UREA NITROGEN 67 mg/dL (7-26); BUN/CREATININE RATIO 8 (6-25); CALCIUM 7.8 mg/dL (8.4-10.2); CARBON DIOXIDE 19 mmol/L (22-29); CHLORIDE 102 mmol/L (98-107); CREATININE, SERUM 8.44 mg/dL (0.72-1.25); EST GLOMERULAR FILTRATION RATE 7 ML/MIN (60-); GLUCOSE 198 mg/dL (74-118); SODIUM 138 mmol/L (136-145)
[2021-05-24 07:02] LABS: ALANINE AMINOTRANSFERASE < 6 IU/L (0-55)
[2021-05-24] MEDS ORDERED: BISACODYL 5 MG TAB EC PO ONE (07:15)
[2021-05-24] MEDS: INSULIN LISPRO 100 UNIT/1 ML 3ML VIAL SQ SCH ×4 (07:30→20:55)
[2021-05-24] MEDS: FOLIC ACID 1 MG TAB PO SCH (08:39)
[2021-05-24] MEDS: CARVEDILOL 12.5 MG TAB PO SCH ×3 (08:39→16:38)
[2021-05-24] MEDS: ENALAPRIL MALEATE 10 MG TAB PO SCH ×3 (08:40→16:38)
[2021-05-24] MEDS: FLUOXETINE HCL 10 MG CAP PO SCH (08:40)
[2021-05-24] MEDS: FUROSEMIDE 40 MG TAB PO SCH ×2 (08:40→16:38)
[2021-05-24] MEDS ORDERED: AMLODIPINE BESYLATE 5 MG TAB PO SCH (09:00)
[2021-05-24] MEDS: IRON SUCROSE 100 MG in SODIUM CHLORIDE 0.9% 100 ML 100 ML IV SCH (14:54)
[2021-05-24] MEDS: GABAPENTIN 100 MG CAP PO SCH (21:00)
[2021-05-25] VITALS: BP 121/84
[2021-05-25 05:17] VITALS: BP 108/65
[2021-05-25] MEDS: INSULIN GLARGINE 100 UNITS/ML VIAL SQ SCH (05:54)
[2021-05-25 06:25] LABS: BASOPHILS % 0.4 % (0.0-1.0); EOSINOPHILS # (AUTO) 0.2 (0.0-0.4); EOSINOPHILS % 3.1 % (0.0-6.0); HEMATOCRIT 25.7 % (38.2-49.6); HEMOGLOBIN 8.3 g/dL (14.0-18.0); LYMPHOCYTES # (AUTO) 1.2 (1.0-3.2); LYMPHOCYTES % 16.4 % (18.0-39.1); MEAN CORPUSCULAR HEMOGLOBIN 28.7 pg (28-32); MEAN CORPUSCULAR HGB CONC 32.3 g/dL (31-35); MEAN CORPUSCULAR VOLUME 88.9 fL (81-99); MONOCYTES # (AUTO) 0.6 (0.2-0.8); MONOCYTES % 8.2 % (4.4-11.3); NEUTROPHILS # (AUTO) 5.2 (2.1-6.9); NEUTROPHILS % 71.2 % (38.7-80.0); PLATELET COUNT 246 x10e3/uL (140-360); RED BLOOD COUNT 2.89 x10e6/uL (4.3-5.7); RED CELL DISTRIBUTION WIDTH 15.3 % (11.7-14.4)
[2021-05-25 06:48] LABS: ALBUMIN 1.8 g/dL (3.5-5.0); ALBUMIN/GLOBULIN RATIO 0.5 (0.8-2.0); ALKALINE PHOSPHATASE 178 IU/L (40-150); ANION GAP 21.7 mmol/L (8-16); BLOOD UREA NITROGEN 63 mg/dL (7-26); BUN/CREATININE RATIO 7 (6-25); CALCIUM 7.6 mg/dL (8.4-10.2); CARBON DIOXIDE 20 mmol/L (22-29); CHLORIDE 104 mmol/L (98-107); CREATININE, SERUM 8.62 mg/dL (0.72-1.25); EST GLOMERULAR FILTRATION RATE 6 ML/MIN (60-); GLUCOSE 132 mg/dL (74-118); POTASSIUM 3.7 mmol/L (3.5-5.1); SODIUM 142 mmol/L (136-145)
[2021-05-25 06:53] LABS: ALANINE AMINOTRANSFERASE < 6 IU/L (0-55)
[2021-05-25] MEDS: INSULIN LISPRO 100 UNIT/1 ML 3ML VIAL SQ SCH ×3 (07:30→16:58)
[2021-05-25] MEDS: CARVEDILOL 12.5 MG TAB PO SCH (08:48)
[2021-05-25] MEDS: ENALAPRIL MALEATE 10 MG TAB PO SCH ×2 (08:48→16:59)
[2021-05-25] MEDS: FUROSEMIDE 40 MG TAB PO SCH ×2 (08:48→16:58)
[2021-05-25] MEDS: FLUOXETINE HCL 10 MG CAP PO SCH (08:48)
[2021-05-25] MEDS: FOLIC ACID 1 MG TAB PO SCH (08:48)
[2021-05-25 08:49] VITALS: BP 122/63
[2021-05-25 08:51] VITALS: BP 122/63
[2021-05-25] MEDS ORDERED: COREG12.5 MG PO (11:08)
[2021-05-25] MEDS ORDERED: Folic Acid PO (11:08)
[2021-05-25] MEDS ORDERED: VASOTEC10 MG PO (11:08)
[2021-05-25] MEDS: IRON SUCROSE 100 MG in SODIUM CHLORIDE 0.9% 100 ML 100 ML IV SCH (12:16)
[2021-05-25] MEDS ORDERED: ONDANSETRON HCL 4 MG ORAL DISINTEGRATING TAB PO PRN (12:30)
[2021-05-25 13:42] VITALS: BP 148/75
[2021-05-25 16:47] VITALS: BP 145/85
[2021-05-25] MEDS ORDERED: CARVEDILOL 12.5 MG TAB PO SCH (17:00)
[2021-05-25] MEDS ORDERED: CARVEDILOL12.5 MG PO (20:30)
[2021-05-25] MEDS ORDERED: LANTUS 3ML100 UNITS/ SC (20:30)
[2021-05-25] MEDS ORDERED: INSULIN GLARGINE 100 UNITS/ML VIAL SQ SCH (21:00)
== END 2021-05-25 18:05 | disposition home or self-care (01) | DRG 377 ==
LOC: ER 11:33 → ERHOLD 14:42 → MED/SURG3 16:20
PROVIDERS: ADMIT Internal Medicine; ATTEND Internal Medicine
PROC: 30233N1 Transfusion of Nonautologous Red Blood Cells into Peripheral Vein, Percutaneous Approach (ICD-10-PCS; 2021-05-22)
PROC: 3E1M39Z Irrigation of Peritoneal Cavity using Dialysate, Percutaneous Approach (ICD-10-PCS; 2021-05-22)
PROC: 0DB78ZX Excision of Stomach, Pylorus, Via Natural or Artificial Opening Endoscopic, Diagnostic (ICD-10-PCS; 2021-05-23)
PROC: 0DBH8ZZ Excision of Cecum, Via Natural or Artificial Opening Endoscopic (ICD-10-PCS; principal; 2021-05-24 13:30)
DX: K57.31 Diverticulosis of large intestine without perforation or abscess with bleeding (principal); N18.6 End stage renal disease; I50.33 Acute on chronic diastolic (congestive) heart failure; I13.2 Hypertensive heart and chronic kidney disease with heart failure and with stage 5 chronic kidney disease, or end stage renal disease; D62 Acute posthemorrhagic anemia; E11.22 Type 2 diabetes mellitus with diabetic chronic kidney disease; E11.65 Type 2 diabetes mellitus with hyperglycemia; Z99.2 Dependence on renal dialysis; D63.1 Anemia in chronic kidney disease; I25.10 Atherosclerotic heart disease of native coronary artery without angina pectoris; F41.9 Anxiety disorder, unspecified; I48.0 Paroxysmal atrial fibrillation; Z79.01 Long term (current) use of anticoagulants; Z95.820 Peripheral vascular angioplasty status with implants and grafts; K63.5 Polyp of colon; K57.30 Diverticulosis of large intestine without perforation or abscess without bleeding; K64.8 Other hemorrhoids; E11.319 Type 2 diabetes mellitus with unspecified diabetic retinopathy without macular edema; E11.51 Type 2 diabetes mellitus with diabetic peripheral angiopathy without gangrene; Z79.899 Other long term (current) drug therapy; F32.A Depression, unspecified; E11.621 Type 2 diabetes mellitus with foot ulcer; Z79.4 Long term (current) use of insulin; L97.529 Non-pressure chronic ulcer of other part of left foot with unspecified severity; Z20.822 Contact with and (suspected) exposure to COVID-19
CPT/HCPCS: 36415; 43239; 45378; 45380; 71045; 78278; 80053; 80061; 82270; 82550; 82553; 82607; 82728; 82746; 82948; 83036; 83540; 83605; 83735; 83880; 84100; 84439; 84443; 84466; 84484; 85025; 85045; 85610; 85730; 86850; 86900; 86920; 87040; 88305; 88312; 93005; 96372; 99251; 99284; A9512; J1644; J1756; J1815; J1817; J2001; J7050; P9016; U0002